=== PATIENT | male | born 1970 | race Caucasian/White ===

== ENCOUNTER 2019-09-29 11:50 | Emergency (ER) | payer OTHER, SELFPAY ==
[2019-09-29 12:08] VITALS: BP 150/94; PULSE 86; RESP 16; TEMP 36.1; O2SAT 100
--- NOTE | 2019-09-29 12:35 | ED.GENADULT ---
HPI - General Adult General Chief complaint: Ear Stated complaint: EARACHE Time Seen by Provider: 09/29/19 12:36 Source: patient Mode of arrival: ambulatory Limitations: no limitations History of Present Illness HPI narrative: 48-year-old male patient presents to the [facility] with complaints of left ear pain that started last night. Patient states that he has had a cold virus that he has been treating himself with for the last 2 weeks. Patient states his symptoms are getting better however he noticed that he had some ear pain that was keeping him up last night. Patient denies any fevers. Denies any coughing, chest pain, shortness of breath, abdominal pain, nausea, vomiting or diarrhea. Patient states he has been treating himself with Tylenol Cold and flu, NyQuil and Mucinex [id number]. Related Data Allergies Allergy/AdvReac Type Severity Reaction Status Date / Time erythromycin base AdvReac Vomiting Verified 09/29/19 12:07 Review of Systems Review of Systems: Narrative: CONSTITUTIONAL: Denies fever, chills, or sweats. EYES: Denies visual changes, redness, or discharge. ENT: Denies rhinorrhea, congestion, sore throat, positive left otalgia. CARDIOVASCULAR: Denies chest pain, palpitations, or edema. RESPIRATORY: Denies cough or dyspnea. GASTROINTESTINAL: Denies abdominal pain, nausea, vomiting, or diarrhea. GENITOURINARY: Denies dysuria or hematuria. SKIN: Denies rash or itching. MUSCULOSKELETAL: Denies back pain, joint pain, or myalgia. NEUROLOGIC: Denies headache, numbness, or weakness. PSYCHIATRIC: Denies anxiety or depression. PMFSH Comments At the time of my signature I agree with nursing past medical history, surgical, social, and family history. There is no relevant family history pertinent to the presenting complaint. Exam Narrative: Exam Narrative: GENERAL: Well-appearing, well-nourished, and in no acute distress. HEAD: Normocephalic, atraumatic. EYES: PERRLA and EOMI. ENT: Nares with erythema and edema noted bilaterally with the left nare swollen shut, no rhinorrhea or epistaxis. Mucous membranes moist. Posterior pharynx with no erythema, tonsil enlargement, exudates or lesions present. Slight erythema noted to the left ear with a little bit of fluid noted behind the tympanic membrane. No erythema or foreign bodies noted to the canal. NECK: Supple. No lymphadenopathy CHEST: Clear to auscultation. No respiratory distress. HEART: Regular rate and rhythm. No murmur heard. Normal peripheral pulses. ABDOMEN: Soft, nontender, nondistended, normal active bowel sounds. EXTREMITIES: Normal range of motion. No edema. SKIN: Warm, dry, no rash. NEURO: No focal deficits. Alert and oriented x3. Course Vital Signs Vital signs: Vital Signs Temperature 36.1 C L 09/29/19 12:08 Pulse Rate 86 09/29/19 12:08 Respiratory Rate 16 09/29/19 12:08 Blood Pressure 150/94 H 09/29/19 12:08 Pulse Oximetry 100 09/29/19 12:08 Temperature 36.1 C L 09/29/19 12:08 Pulse Rate 86 09/29/19 12:08 Respiratory Rate 16 09/29/19 12:08 Blood Pressure 150/94 H 09/29/19 12:08 Pulse Oximetry 100 09/29/19 12:08 Vital signs reviewed. The patient has been informed that they may have pre-hypertension or Hypertension based on a BP reading in the department. I recommend that the patient call the primary care provider listed on their discharge instructions or a physician of their choice this week to arrange follow up for further evaluation of possible pre-hypertension or Hypertension Medical Decision Making Differential Diagnosis Differential Diagnosis: Differential diagnosis: Otitis media, otitis externa, perforated TM, infection of the outer ear, foreign body or cerumen impaction, ruptured TM, acute mastoiditis, ligament otitis externa, dehydration, pneumonia, sepsis, dental or intraoral infection, TMJ dysfunction Discussed with patient that we will go ahead and place him on an antibiotic for what appears to be loo
== END 2019-09-29 12:46 | disposition home or self-care (01) ==
PROVIDERS: Emergency Provider Nurse Practitioner Family
DX: H66.92 Otitis media, unspecified, left ear (principal); J00 Acute nasopharyngitis [common cold]; J01.90 Acute sinusitis, unspecified; G47.30 Sleep apnea, unspecified
CPT/HCPCS: 99213; G0463

== ENCOUNTER 2023-05-12 08:31 | Day surgery (SDC) | payer OTHER, SELFPAY ==
[2023-05-02 10:55] VITALS: BMI 31.3
[2023-05-06 09:09] VITALS: BMI 32.8
[2023-05-12 09:13] VITALS: BP 148/93; PULSE 88; RESP 16; TEMP 36.8; O2SAT 100
[2023-05-12] MEDS: LACTATED RINGERS 1,000 ML 150 ML IV CONT (09:25)
--- NOTE | 2023-05-12 09:51 | P.PNAN_ITS ---
Anes - Initial Pre Proc Eval Procedure: Operation Date: 05/12/23 10:30 Proposed Procedures p Diagnostic Colonoscopy - Evangelist Patel MD Date/Time: 05/12/23 09:51 Surgeon: Evangelist Patel MD Pre Op Diagnosis: Other Fecal Abnormalities Patient Data Age: 52 Gender: M Height: 1.88 m Weight: 113 kg Last Vital Signs Temp 36.8 C 05/12/23 09:13 Pulse 88 05/12/23 09:13 Resp 16 05/12/23 09:13 BP 148/93 H 05/12/23 09:13 Pulse Ox 100 05/12/23 09:13 O2 Del Method Room Air 05/12/23 09:13 Allergies Allergy/AdvReac Type Severity Reaction Status Date / Time erythromycin base AdvReac Vomiting Verified 05/12/23 09:12 Home Medications Medication Instructions Recorded Confirmed Type losartan 50 mg tablet 50 mg PO DAILY 05/06/23 05/12/23 History trazodone 50 mg tablet 50 mg PO DAILY 05/06/23 05/12/23 History Patient hx anesthesia problems: none Family hx anesthesia problems: none Results Review: All pre-operative results and documents have been reviewed as part of the pre- operative evaluation. [facility] Past Medical History Medical History (Updated 05/12/23 @ 09:51 by Oniel Rodrigez MD) HTN (hypertension) Obesity BEBETO (obstructive sleep apnea) Social History Social History Smoking status: Never smoker Alcohol intake: current Alcohol use details: 3x week Substance use: never Substance use type: does not use Living arrangements: alone Spiritual care concerns: No Anes - Eval Final PreProcedure Day of Procedure 05/12/23 09:51 Patient weight: obese Heart: regular rate and rhythm Lungs: clear to auscultation Airway: Mallampati scale class II Neurological: alert and oriented Last oral intake: >/= 8 hours ASA classification: III Emergent: no Anesthetic plan: proceed Anesthesia type and monitoring: general GIVS and standard monitoring Results Review: All pre-operative results and documents have been reviewed as part of the pre- operative evaluation. Informed Consent: The patient's anesthetic plan and its attendant risks and benefits were discussed with the patient/family/POA. Questions were solicited and answers provided to the satisfaction of the patient/family/POA.
--- NOTE | 2023-05-12 10:14 | PM.HPGS ---
History of Present Illness History of Present Illness Consent: Risks, benefits, and alternatives have been discussed and questions answered. Patient agrees to proceed with procedure. Chief complaint: Other Fecal Abnormalities Narrative: Steve Garcia is a 52 year old male here for first colonoscopy, had + cologuard Review of Systems Constitutional: Constitutional: Denies headache(s) and Denies weakness Eyes: Eyes: Denies blurry vision ENT: Reports Normal hearing present, Denies headache(s) and Denies neck pain Cardiovascular: Cardiovascular: Denies chest pain and Denies dyspnea Respiratory: Respiratory: Denies dyspnea Gastrointestinal: Gastrointestinal: Reports no additional gastrointestinal complaints Genitourinary: Genitourinary: Denies dysuria Musculoskeletal: Musculoskeletal: Denies neck pain Integumentary/Breasts: Skin/Breast: Denies dry skin Neurologic: Reports Normal hearing present, Denies headache(s) and Denies weakness Psychiatric: Psychiatric: Denies anxiety Endocrine: Endocrine: Denies change in body appearance Hematologic/Lymphatic: Hematologic/Lymphatic: Denies easy bleeding Allergic/Immunologic: Allergic/Immunologic: Denies urticaria PMFSH Past Medical History Medical History (Updated 05/12/23 @ 10:15 by Evangelist Patel MD) HTN (hypertension) Obesity BEBETO (obstructive sleep apnea) Positive colorectal cancer screening using Cologuard test Social History Social History Smoking status: Never smoker Alcohol intake: current Alcohol use details: 3x week Substance use: never Substance use type: does not use Living arrangements: alone Spiritual care concerns: No Meds Home Medications and Allergies Home Medications Medication Instructions Recorded Confirmed Type losartan 50 mg tablet 50 mg PO DAILY 05/06/23 05/12/23 History trazodone 50 mg tablet 50 mg PO DAILY 05/06/23 05/12/23 History Allergies Allergy/AdvReac Type Severity Reaction Status Date / Time erythromycin base AdvReac Vomiting Verified 05/12/23 09:12 Vital Signs Vital Signs - 24 hr 05/12/23 09:13 Temperature 98.3 F Pulse Rate 88 Respiratory Rate 16 Blood Pressure 148/93 H Pulse Oximetry 100 Oxygen Delivery Room Air Exam Const: General: comfortable and no acute distress HENMT: Face/Nose/Sinus: Normal nares present Eyes: General: appearance normal, both eyes and all related structures Neck: Neck: no JVD Resp: Auscultation: clear to auscultation bilaterally Cardio: Rate: regular rate Rhythm: regular rhythm GI: Inspection: non-distended GI Palp: Yes Soft to palpation Skin: General skin exam: normal color Neuro: General: gait normal Speech: normal speech Extrem: General: normal to inspection Psych: Mental Status: mental status grossly normal Assessment and Plan Assessment and plan (1) Positive colorectal cancer screening using Cologuard test: Code(s): R19.5 - Other fecal abnormalities Status: Acute Assessment and Plan: colonoscopy
[2023-05-12 10:40] VITALS: BP 108/71; PULSE 82; RESP 18; O2SAT 97
[2023-05-12 10:47] VITALS: BP 114/80; PULSE 81; RESP 18; O2SAT 99
--- NOTE | 2023-05-12 10:49 | WPDANESPN ---
Anes - Prog Note Post-Op Date/Time: 05/12/23 10:49 Cardiovascular status: normal Respiratory status: normal Airway patency: baseline Mental status: baseline Post-Op hydration status: normal Vital Signs: Last Vital Signs Temp 36.8 C 05/12/23 09:13 Pulse 82 05/12/23 10:40 Resp 18 05/12/23 10:40 BP 108/71 05/12/23 10:40 Pulse Ox 97 05/12/23 10:40 O2 Del Method Room Air 05/12/23 10:40 Pain Score (VAS): 0/10 I/O: Intake & Output 05/11/23 05/12/23 05/12/23 23:59 07:59 15:59 Intake Total 300 Balance 300 Patient Feedback: Patient satisfied with anesthetic care.
[2023-05-12 10:57] VITALS: BP 120/82; PULSE 74; RESP 16; O2SAT 100
== END 2023-05-12 11:01 | disposition home or self-care (01) ==
PROVIDERS: PCP Nurse Practitioner Family; Visit Provider Internal Medicine Gastroenterology
PROC: 0DJD8ZZ Inspection of Lower Intestinal Tract, Via Natural or Artificial Opening Endoscopic (ICD-10-PCS; CPT 45378; principal; 2023-05-12 10:30)
DX: K63.5 Polyp of colon (principal); K64.8 Other hemorrhoids
CPT/HCPCS: 45385; 45380

== ENCOUNTER 2023-05-12 09:51 | Outpatient (NON) | payer OTHER, SELFPAY | END 2023-05-12 09:52 | disposition home or self-care (01) | PROVIDERS: PCP Nurse Practitioner Family; Visit Provider Internal Medicine Gastroenterology | DX: R19.5 Other fecal abnormalities (principal) | CPT/HCPCS: 88305 ==

== ENCOUNTER 2024-08-02 07:59 | Day surgery (SDC) | payer OTHER, SELFPAY ==
[2024-05-28 07:50] VITALS: BMI 32.8
[2024-07-12 14:42] VITALS: BMI 33.4
[2024-08-02 08:46] VITALS: BP 124/79; PULSE 84; RESP 18; TEMP 36.6; O2SAT 98
[2024-08-02] MEDS: LACTATED RINGERS 1,000 ML 150 ML IV CONT (08:48)
--- NOTE | 2024-08-02 09:03 | PM.IMHP ---
H&P: HPI History of Present Illness Date/Time: 08/02/24 09:03 Chief Complaint: history of colon polyps Narrative: The patient has a history of colonic polyps, the last colonoscopy was in April 2023. there was a large pedunculated polyp in descending colon which was removed. The polyp had a 5% villous component. He is here for surveillance colonoscopy. Review of Systems Review of Systems: All systems reviewed & are unremarkable except as noted in HPI and below PMFSH Past Medical History Medical History (Updated 08/02/24 @ 09:06 by Roberto Nunez MD) Hx of colonic polyps Difficulty concentrating Insomnia BEBETO (obstructive sleep apnea) HTN (hypertension) Obesity Social History Social History Smoking status: Never smoker Alcohol intake: current Drinks per week: 18 Alcohol use details: 3x week Substance use: current Substance use type: marijuana Living arrangements: alone Spiritual care concerns: No Meds Home Medications and Allergies Home Medications ?Medication ?Instructions ?Recorded ?Confirmed ?Type trazodone 50 mg tablet 50 mg PO DAILY 05/06/23 08/02/24 History losartan 50 mg tablet 50 mg PO DAILY #90 tabs 07/29/24 08/02/24 Rx Allergies Allergy/AdvReac Type Severity Reaction Status Date / Time erythromycin base AdvReac Vomiting Verified 08/02/24 08:44 Vital Signs Vital Signs - 24 hr 08/02/24 08:46 Temperature 97.8 F Pulse Rate 84 Respiratory Rate 18 Blood Pressure 124/79 Pulse Oximetry 98 Oxygen Delivery Room Air Exam Const: General: comfortable and no acute distress HENMT: Face/Nose/Sinus: Normal nares present Eyes: General: appearance normal, both eyes and all related structures Neck: Neck: no JVD Resp: Auscultation: clear to auscultation bilaterally Cardio: Rate: regular rate Rhythm: regular rhythm GI: Inspection: non-distended GI Palp: Yes Soft to palpation Skin: General skin exam: normal color Neuro: General: gait normal Speech: normal speech Extrem: General: normal to inspection Psych: Mental Status: mental status grossly normal Assessment and Plan Assessment and plan (1) Hx of colonic polyps: Code(s): Z86.0100 - Personal history of colon polyps, unspecified Status: Acute Assessment and Plan: The patient is deemed a good candidate for the procedure. Consent signed. Will proceed.
--- NOTE | 2024-08-02 09:26 | WPDANESEPPF ---
Anes - Initial Pre Proc Eval Procedure: Operation Date: 08/02/24 11:15 Proposed Procedures p Diagnostic Colonoscopy - Roberto Nunez MD Date/Time: 08/02/24 09:26 Surgeon: Roberto Nunez MD Pre Op Diagnosis: History of Polyps Patient Data Age: 53 Gender: M Height: 1.88 m Weight: 120.9 kg Last Vital Signs Temp 36.6 C 08/02/24 08:46 Pulse 84 08/02/24 08:46 Resp 18 08/02/24 08:46 BP 124/79 08/02/24 08:46 Pulse Ox 98 08/02/24 08:46 O2 Del Method Room Air 08/02/24 08:46 Allergies Allergy/AdvReac Type Severity Reaction Status Date / Time erythromycin base AdvReac Vomiting Verified 08/02/24 08:44 Home Medications ?Medication ?Instructions ?Recorded ?Confirmed ?Type trazodone 50 mg tablet 50 mg PO DAILY 05/06/23 08/02/24 History losartan 50 mg tablet 50 mg PO DAILY #90 tabs 07/29/24 08/02/24 Rx Patient hx anesthesia problems: none Family hx anesthesia problems: none Results Review: All pre-operative results and documents have been reviewed as part of the pre-operative evaluation. [facility] Past Medical History Medical History Hx of colonic polyps Difficulty concentrating Insomnia BEBETO (obstructive sleep apnea) HTN (hypertension) Obesity Surgical History Surgical History (Updated 08/02/24 @ 09:27 by Oniel Rodrigez MD) H/O colonoscopy Social History Social History Smoking status: Never smoker Alcohol intake: current Drinks per week: 18 Alcohol use details: 3x week Substance use: current Substance use type: marijuana Living arrangements: alone Spiritual care concerns: No Anes - Eval Final PreProcedure Day of Procedure 08/02/24 09:26 Patient weight: obese Heart: regular rate and rhythm Lungs: clear to auscultation Airway: Mallampati scale class II Neurological: alert and oriented Last oral intake: >/= 8 hours ASA classification: III Emergent: no Anesthetic plan: proceed Anesthesia type and monitoring: general GIVS and standard monitoring Results Review: All pre-operative results and documents have been reviewed as part of the pre-operative evaluation. Informed Consent: The patient's anesthetic plan and its attendant risks and benefits were discussed with the patient/family/POA. Questions were solicited and answers provided to the satisfaction of the patient/family/POA.
[2024-08-02 09:53] VITALS: BP 88/57; PULSE 79; RESP 16; O2SAT 96
[2024-08-02 10:03] VITALS: BP 108/70; PULSE 77; RESP 16; O2SAT 100
[2024-08-02 10:13] VITALS: BP 121/79; PULSE 75; RESP 20; O2SAT 99
--- NOTE | 2024-08-02 10:53 | WPDANESPN ---
Anes - Prog Note Post-Op Date/Time: 08/02/24 10:53 Cardiovascular status: normal Respiratory status: normal Airway patency: baseline Mental status: baseline Post-Op hydration status: normal Vital Signs: Last Vital Signs Temp 36.6 C 08/02/24 08:46 Pulse 75 08/02/24 10:13 Resp 20 08/02/24 10:13 BP 121/79 08/02/24 10:13 Pulse Ox 99 08/02/24 10:13 O2 Del Method Room Air 08/02/24 10:13 Pain Score (VAS): 0/10 I/O: Intake & Output 08/01/24 08/02/24 08/02/24 23:59 07:59 15:59 Intake Total 500 Balance 500 Patient Feedback: Patient satisfied with anesthetic care.
== END 2024-08-02 10:24 ==
PROVIDERS: PCP Family Medicine; Visit Provider Internal Medicine Gastroenterology
PROC: 0DJD8ZZ Inspection of Lower Intestinal Tract, Via Natural or Artificial Opening Endoscopic (ICD-10-PCS; CPT 45378; principal; 2024-08-02 11:15)
DX: Z12.11 Encounter for screening for malignant neoplasm of colon (principal); Z86.0100 Personal history of colon polyps, unspecified
CPT/HCPCS: 45378

== ENCOUNTER 2025-02-10 12:27 | Outpatient (CLI) | payer OTHER, SELFPAY ==
--- NOTE | ~2025-02-10 | US_ITS ---
EXAM: US scrotum doppler - 02/10/2025 12:28 CDT HSITORY: 54 years old Male with N50.89 - Other specified disorders of the male genital or... TECHNIQUE: Real-time sonographic and color Doppler images of the scrotum were obtained. Spectral wave form analysis was performed. COMPARISON: None. FINDINGS: RIGHT: Right testes measures: 4.6 x 3.6 x 2.3 Homogeneous echotexture with normal arterial and venous flow. No focal mass. 0.4 x 0.4 x 0.3 cm epididymal cyst. No evidence of varicocele or hydrocele. LEFT: Left testicle measures: 4.9 x 3.4 x 2.7. Homogeneous echotexture with normal arterial and venous flow. No focal mass. Left epididymis appears within normal limits. No evidence of varicocele or hydrocele. IMPRESSION: 0.4 cm right epididymal cyst. Reviewed, dictated and finalized at location A.
== END 2025-02-10 12:28 | disposition home or self-care (01) ==
LOC: GOSHIMG 12:27
PROVIDERS: PCP Family Medicine; Visit Provider Family Medicine
DX: N50.89 Other specified disorders of the male genital organs (principal); N50.3 Cyst of epididymis
CPT/HCPCS: 76870; 93976